=== PATIENT | male | born 1990 | race Caucasian/White ===

== ENCOUNTER 2017-01-26 11:56 | Emergency (ER) | payer SELFPAY ==
[2017-01-26] MEDS ORDERED: IOHEXOL 350 MG/ML 10 ML VIAL (for RAD DIAG) IVCONTRAST ONE (11:57)
--- NOTE | 2017-01-26 14:22 | PD ---
HPI Chief Complaint: GI Complaint Time Seen by Provider: 14:22 Travel History International Travel<30 days: No Contact w/Intl Traveler<30days: No History of Present Illness HPI 26 YO M presents to the ED for evaluation of ~36 hour history of cramping, intermittent right-sided abdominal pain. 4/10 on presentation, maximally 8/10. Patient endorses mild nausea. He denies vomiting, changes in bowel habits. He endorses bowel movement every 5-7 days. Last bowel movement yesterday, well- formed, nonbloody. He endorses chills overnight. He denies dysuria, back pain. He states that he treated with Pepto-Bismol overnight which did help his symptoms until later in the evening. Endorses allergy to codeine. Takes no daily medications. [facility] Social History Alcohol Use: Yes (rare) Tobacco Use: No Substance Use: No Allergies-Medications (Allergen,Severity, Reaction): Coded Allergies: codeine (Verified Allergy, Unknown, 01/26/17) Review of Systems Except as stated in HPI: all other systems reviewed are Neg Physical Exam Narrative GENERAL: Well-nourished, well-developed thin white male in no acute distress. SKIN: Focused skin assessment warm/dry. HEAD: Normocephalic. EYES: No scleral icterus. No injection or drainage. NECK: Supple, trachea midline. No JVD or lymphadenopathy. CARDIOVASCULAR: Regular rate and rhythm without murmurs, gallops, or rubs. RESPIRATORY: Breath sounds equal bilaterally. No accessory muscle use. GASTROINTESTINAL: Abdomen soft, nondistended. Tender in the right upper quadrant and right lower quadrants. No palpable masses. Hyperactive bowel sounds. MUSCULOSKELETAL: No cyanosis, or edema. BACK: Nontender without obvious deformity. No CVA tenderness. Data Data Last Documented VS Vital Signs Date Time Temp Pulse Resp B/P (MAP) Pulse Ox O2 Delivery O2 Flow Rate FiO2 01/26/17 15:06 18 99 Room Air 01/26/17 14:30 98.7 59 Orders Orders Complete Blood Count With Diff (01/26/17 14:37) Comprehensive Metabolic Panel (01/26/17 14:37) Lipase (01/26/17 14:37) Lactic Acid (01/26/17 14:37) Urinalysis - C+S If Indicated (01/26/17 14:37) Ct Abd/Pel W Iv Contrast(Rout) (01/26/17 14:37) Iv Access Insert/Monitor (01/26/17 14:37) Ecg Monitoring (01/26/17 14:37) Oximetry (01/26/17 14:37) Morphine Inj (Morphine Inj) (01/26/17 14:45) Ondansetron Inj (Zofran Inj) (01/26/17 14:45) Sodium Chlor 0.9% 1000 Ml Inj (Ns 1000 M (01/26/17 14:37) Sodium Chloride 0.9% Flush (Ns Flush) (01/26/17 14:45) Diatrizoate Liq ( Gastroviraj Liq) (01/26/17 14:51) Iohexol 350 Inj (Omnipaque 350 Inj) (01/26/17 11:57) Ibuprofen (Motrin) (01/26/17 17:30) Labs Laboratory Tests Test 01/26/17 14:40 White Blood Count 6.0 TH/MM3 Red Blood Count 5.28 MIL/MM3 Hemoglobin 15.5 GM/DL Hematocrit 46.7 % Mean Corpuscular Volume 88.4 FL Mean Corpuscular Hemoglobin 29.4 PG Mean Corpuscular Hemoglobin Concent 33.3 % Red Cell Distribution Width 13.7 % Platelet Count 202 TH/MM3 Mean Platelet Volume 8.2 FL Neutrophils (%) (Auto) 57.9 % Lymphocytes (%) (Auto) 33.9 % Monocytes (%) (Auto) 6.7 % Eosinophils (%) (Auto) 1.0 % Basophils (%) (Auto) 0.5 % Neutrophils # (Auto) 3.5 TH/MM3 Lymphocytes # (Auto) 2.0 TH/MM3 Monocytes # (Auto) 0.4 TH/MM3 Eosinophils # (Auto) 0.1 TH/MM3 Basophils # (Auto) 0.0 TH/MM3 CBC Comment DIFF FINAL Differential Comment Urine Color YELLOW Urine Turbidity CLEAR Urine pH 7.0 Urine Specific [place] 1.034 Urine Protein TRACE mg/dL Urine Glucose (UA) NEG mg/dL Urine Ketones TRACE mg/dL Urine Occult Blood NEG Urine Nitrite NEG Urine Bilirubin NEG Urine Urobilinogen LESS THAN 2.0 MG/DL Urine Leukocyte Esterase NEG Urine RBC 1 /hpf Urine WBC LESS THAN 1 /hpf Urine Mucus MOD /lpf Microscopic Urinalysis Comment CULT NOT INDICATED Blood Urea Nitrogen 13 MG/DL Creatinine 0.90 MG/DL Random Glucose 98 MG/DL Total Protein 7.9 GM/DL Albumin 4.4 GM/DL Calcium Level 9.2 MG/DL Alkaline Phosphatase 84 U/L Aspartate Amino Transf (AST/SGOT) 17 U/L Alanine Aminotransferase (ALT/SGPT) 30 U/L Total Bilirubin 0.5 MG/DL Sodium Level 138 MEQ/L Potassium Level 4.5 MEQ/L Chloride Level 103 MEQ/L Carbon Dioxide Level 29.5 MEQ/L Anion Gap 6 MEQ/L Estimat Glomerular Filtration Rate 101 ML/MIN Lactic Acid Level 0.9 mmol/L Lipase 117 U/L [facility] Medical Decision Making Medical Screen Exam Complete: Yes Emergency Medical Condition: Yes Differential Diagnosis Cholecystitis versus appendicitis versus gastroenteritis versus colitis versus bowel obstruction versus ileus versus other Narrative Course 26 YO M presents to the ED for evaluation of ~36 hour history of cramping, intermittent right-sided abdominal pain. 4/10 on presentation, maximally 8/10. Patient endorses mild nausea. He denies vomiting, changes in bowel habits. He endorses bowel movement every 5-7 days. Last bowel movement yesterday, well- formed, nonbloody. He endorses chills overnight. He denies dysuria, back pain. Vitals reviewed. Physical exam reveals a thin, nontoxic-appearing white male in no acute distress. He does have right upper quadrant, right lower quadrant and periumbilical tenderness to palpation. IV was established. He was administered 4 mg morphine, 4 mg Zofran and 1 L and normal saline. CBC, CMP, UA unremarkable. Lactic acid 0.9. Lipase 117. CT reveals moderate stool burden but is otherwise unremarkable. Appendix is normal per radiology read. I discussed the results of the workup with the patient. He still complaining of abdominal discomfort. I recommended that he increase fiber and fluid intake, increase daily activity, consider OTC stool softeners daily. We discussed reasons to return to the ED. He indicated understanding of the discharge instructions and is agreeable to the care plan. He is stable and discharged home. Diagnosis Primary Impression: Constipation Qualified Codes: K59.00 - Constipation, unspecified Additional Impression: Abdominal pain Qualified Codes: R10.9 - Unspecified abdominal pain Referrals: Primary Care Physician Patient Instructions: Abdominal Pain (ED), General Instructions Additional Instructions: Rest, hydrate. Return to normal, gentle activity as tolerated. Follow-up with the primary care provider. Return to the ED for worsening symptoms or any urgent or emergent medical condition. Disposition: 01 DISCHARGE HOME Condition: Stable Amanda Munoz Jan 26, 2017 14:22
[2017-01-26 14:25] VITALS: BP 145/81; PULSE 80; RESP 18; TEMP 97.9; O2SAT 99
[2017-01-26 14:30] VITALS: BP 134/67; PULSE 59; RESP 18; TEMP 98.7; O2SAT 98
[2017-01-26] MEDS ORDERED: SODIUM CHLOR 0.9% 1000 ML INJ 1,000 ML IV SCH (14:37)
[2017-01-26] MEDS ORDERED: SODIUM CHLORIDE 0.9% FLUSH 10 ML FLUSH IV FLUSH PRN (14:45)
[2017-01-26] MEDS ORDERED: ONDANSETRON HCL 4 MG/2 ML VIAL IVP ONE (14:45)
[2017-01-26] MEDS ORDERED: MORPHINE SULFATE 4 MG/ML INJ IV PUSH ONE (14:45)
[2017-01-26] MEDS ORDERED: DIATRIZOATE MEGLUM/DIATRIZOATE SOD 9 ML CUP ONE (14:51)
[2017-01-26 15:06] VITALS: RESP 18; O2SAT 99
[2017-01-26 15:13] LABS: AUTOMATED NEUTROPHIL # 3.5 TH/MM3 (1.8-7.7); BASOPHIL % 0.5 % (0.0-2.0); BLOOD, URINE NEG (NEG); COMMENT (UR) CULT NOT INDICATED; CULTURE IF INDICATED CULT NOT INDICATED; EOSINOPHIL # 0.1 TH/MM3 (0-0.4); GLUCOSE,URINE NEG (NEG); HEMATOCRIT 46.7 % (39.0-51.0); HEMO FLAGS DIFF FINAL; KETONE, URINE TRACE mg/dL (NEG); LYMPH % 33.9 % (9.0-44.0); MEAN CELL VOLUME 88.4 FL (80.0-100.0); MEAN CORPUSCULAR HEMOGLOBIN 29.4 PG (27.0-34.0); MEAN CORPUSCULAR HGB CONC 33.3 % (32.0-36.0); MONO % 6.7 % (0.0-8.0); MUCUS URINE MOD /lpf (OCC); NEUT % 57.9 % (16.0-70.0); NITRITE,URINE NEG (NEG); PLATELET COUNT 202 TH/MM3 (150-450); RED BLOOD COUNT 5.28 MIL/MM3 (4.50-5.90); RED CELL DISTRIBUTION WIDTH 13.7 % (11.6-17.2); URINE COLOR YELLOW (YELLW/STRAW)
[2017-01-26 15:26] LABS: ALT (GPT) 30 U/L (12-78); ANION GAP 6 MEQ/L (5-15); AST (GOT) 17 U/L (15-37); BICARBONATE 29.5 MEQ/L (21.0-32.0); BLOOD UREA NITROGEN 13 MG/DL (7-18); CHLORIDE 103 MEQ/L (98-107); GLOMERULAR FILTRATION RATE 101 ML/MIN (>89); POTASSIUM 4.5 MEQ/L (3.5-5.1); SODIUM (NA) 138 MEQ/L (136-145)
[2017-01-26 15:29] LABS: ALKALINE PHOSPHATASE 84 U/L (45-117); TOTAL BILIRUBIN ADULT 0.5 MG/DL (0.2-1.0)
--- NOTE | 2017-01-26 16:35 | RADRPT ---
EXAM DATE/TIME: 01/26/2017 16:09 [place] COMPARISON: No previous studies available for comparison. INDICATIONS : Right sided abdomen pain for two day. IV CONTRAST: 80 cc Omnipaque 350 (iohexol) IV ORAL CONTRAST: Prescribed oral contrast ingested. RADIATION DOSE: 9.96 CTDIvol (mGy) MEDICAL HISTORY : None SURGICAL HISTORY : None. ENCOUNTER: Initial ACUITY: 2 days PAIN SCALE: 7/10 LOCATION: Right lower quadrant TECHNIQUE: Volumetric scanning of the abdomen and pelvis was performed. Using automated exposure control and ad justment of the mA and/or kV according to patient size, radiation dose was kept as low as reasonably achievable to obtain optimal diagnostic quality images. DICOM format image data is available electro nically for review and comparison. FINDINGS: The limited portion of the lung base visualized is clear. The appearance of the liver, spleen, pancreas, adrenal glands and kidneys is within normal limits. There is no free intraperitoneal air. No free intraperitoneal fluid is identified. There is no retrop eritoneal lymphadenopathy. The aorta is normal in caliber. The visualized loops of small and large bowel demonstrate a moderate amount of stool in the cecum and a;. The appendix is visualized and is normal in appearance. There is no free fluid within the pelvis. No iliac or inguinal adenopathy is present. The visualized loops of small and large bowel within the pelvis are unremarkable. There is a moderate amount of stoo l within the rectum. The visualized bony structures demonstrate mild degenerative changes but are otherwise intact. CONCLUSION: 1. There is a moderate amount of stool within the ascending colon and rectum. Examination is otherwis e unremarkable. 2. The appendix is visualized and is normal in appearance. Ford Otero MD on January 26, 2017 at 16:31 Board Certified Radiologist. This report was verified electronically.
[2017-01-26] MEDS ORDERED: IBUPROFEN 800 MG TAB PO ONE (17:30)
== END 2017-01-26 17:43 | disposition home or self-care (01) ==
LOC: NED 11:56 → NEPD 17:43
DX: K59.00 Constipation, unspecified (principal)
CPT/HCPCS: 74177; 80053; 81001; 83605; 83690; 85025; 96374; 96375; 99285; J2270; J2405; J7030; Q9963; Q9967

== ENCOUNTER 2017-03-15 06:00 | Emergency (ER) | payer SELFPAY ==
[~2017-03-15] VITALS: Ht 185.4 cm; Wt 75.0 kg
[2017-03-15] MEDS ORDERED: AMOX250C3 PO (06:09)
[2017-03-15] MEDS ORDERED: CLINDAMYCIN 150 MG CAP PO ONE (06:15)
[2017-03-15] MEDS ORDERED: ACETAMINOPHEN/HYDROcodone 325 MG/5 MG TAB PO ONE (06:15)
[2017-03-15] MEDS ORDERED: CLIN150 PO (06:17)
[2017-03-15] MEDS ORDERED: HYDR-3533 PO (06:17)
--- NOTE | 2017-03-15 06:28 | PD ---
HPI Chief Complaint: Oral / Dental Pain or Problem Time Seen by Provider: 06:10 Travel History International Travel<30 days: No Contact w/Intl Traveler<30days: No Traveled to known affect area: No History of Present Illness HPI 27-year-old white male presents to emergency Department with complaints of dental pain. He states that he's been on antibiotics now for approximately 3 weeks. He has an appointment to see his dentist on Monday. He was told that if he developed increasing pain to come to the ER. In the last day he states that the Motrin that he has been taking at home is no longer controlling his pain. He was told that he may need to have a change in his antibiotics and something strong for pain according to the patient. He denies any fever chills. He complains of pain to his right upper and lower maxilla and jaw. He states the pain is severe. No alleviating factors. PFSH Past Medical History Narrative Medical CHRONIC DENTAL ISSUES Tetanus Vaccination: < 5 Years Past Surgical History Other Surgery: Yes (dental extractions) Social History Alcohol Use: Yes (rare) Tobacco Use: No Substance Use: No Allergies-Medications (Allergen,Severity, Reaction): Coded Allergies: codeine (Verified Allergy, Unknown, 03/15/17) Reported Meds & Prescriptions Reported Meds & Active Scripts Active Lortab (Hydrocodone-Acetaminophen) 5-325 Mg Tab 1 Tab PO Q6H PRN Cleocin (Clindamycin HCl) 150 Mg Cap 300 Mg PO Q6H 10 Days Reported Amoxicillin 250 Mg Cap 250 Mg PO TID Review of Systems Except as stated in HPI: all other systems reviewed are Neg General / Constitutional: No: Fever Eyes: No: Diploplia, Blurred Vision HENT: Positive: Dental Difficulties, No: Headaches, Ear Discharge, Earache Cardiovascular: No: Chest Pain or Discomfort, Palpitations Respiratory: No: Cough, Shortness of Breath Gastrointestinal: No: Nausea, Vomiting Genitourinary: No: Frequency, Dysuria Physical Exam Narrative GENERAL: Well-developed, well-nourished in no acute distress. Nontoxic appearing. HEAD: Normocephalic, atraumatic. EYES: Pupils equal round and reactive. Extraocular motions intact. No scleral icterus. No injection or drainage. ENT: TMs clear without erythema. The external auditory canals clear. Nose: clear . Posterior pharynx is pink and moist. No tonsillar edema or exudate. Uvula midline. Airway patent. Patient has multiple dental caries. NECK: Trachea midline.Supple, nontender, moves head freely. No central bony tenderness or spasm. CARDIOVASCULAR: Regular rate and rhythm without murmurs, gallops, or rubs. RESPIRATORY: Clear to auscultation. Breath sounds equal bilaterally. No wheezes , rales, or rhonchi. GASTROINTESTINAL: Abdomen soft, non-tender, nondistended. No hepato-splenomegaly , or palpable masses. No guarding. EXTREMITIES: No clubbing, cyanosis, or edema. No joint tenderness, effusion, or edema noted. BACK: Nontender without deformity or crepitance. No flank tenderness. Data Data Orders Orders Clindamycin (Cleocin) (03/15/17 06:15) Acetamin-Hydrocod 325-5 Mg ([place] 5-325 (03/15/17 06:15) [facility] Medical Decision Making Medical Screen Exam Complete: Yes Emergency Medical Condition: Yes Medical Record Reviewed: Yes Differential Diagnosis MDM: Moderate Differential diagnoses: Dental abscess, dental caries, osteitis, cellulitis Narrative Course Patient's given clindamycin 300 mg and Lortab 5 a grams by mouth. This is dentalgia, dental caries Diagnosis Primary Impression: Dentalgia Additional Impression: Dental caries Patient Instructions: Narcotic given in the ED, General Instructions Additional Instructions: Rest. [place] gargles. [place] oil on cotton balls. 3 Advil every 6 hours. Clindamycin and Lortab . follow-up with a dentist as soon as possible. And return to the ER if any problems. Med/Other Pt SpecificInfo: Prescription(s) given Scripts Hydrocodone-Acetaminophen (Lortab) 5-325 Mg Tab 1 TAB PO Q6H Y for PAIN, #12 TAB 0 Refills Prov: Katherine Guo MD 03/15/17 Clindamycin (Cleocin) 150 Mg Cap 300 MG PO Q6H for Infection for 10 Days, #80 CAP 0 Refills Prov: Katherine Guo MD 03/15/17 Disposition: 01 DISCHARGE HOME Condition: Stable Shawn Daniel Mar 15, 2017 06:28
== END 2017-03-15 06:51 | disposition home or self-care (01) ==
LOC: NEPD 06:00
DX: K02.9 Dental caries, unspecified (principal)
CPT/HCPCS: 99284